=== PATIENT | male | born 1990 | race Two or more races ===

== ENCOUNTER → 2018-05-10 18:49 | Emergency (ER) | payer OTHER ==
--- NOTE | 2018-05-10 19:20 | ED ---
Psychiatric Complaint - HPI Summary HPI Summary: The patient is a 27 y/o M presenting to [facility] with a chief complaint of depression symptoms that worsened today. He reports that he is going through a divorce and wanted to see his son today but he was unable to, causing him to become very upset. He additionally notes that his oral intake has decreased, although it's been better more recently than at the start of the divorce a few weeks ago. He also states that he is stressed about finishing school this semester due to the stress of the divorce, and he is fearful that won't be able to pay for it. He denies SI and HI at this time. He has hx of depression, anxiety, and epilepsy as a child. No surgical hx. FHx of diabetes, stroke, and lung CA. Nonsmoker, no substance use, occasional EtOH. - History Of Current Complaint Chief Complaint: [facility]MentalHealth Time Seen by Provider: 05/10/18 18:55 Hx Obtained From: Patient Onset/Duration: Gradual Onset, Still Present, Worse Since - today Timing: Days Severity Initially: Moderate Severity Currently: Moderate Character: Depressed Aggravating Factor(s): Recent Stress - due to divorce and school, Other - unable to see son Alleviating Factor(s): Nothing Associated Signs And Symptoms: Positive: Appetite Change Related History: Positive For: Prior Psychiatric Issues - depression, anxiety Has Suicidal: Denies: Thoughts Has Homicidal: Denies: Thoughts Recent Stressor(s): divorce, school - Allergies/Home Medications Allergies/Adverse Reactions: Allergies Allergy/AdvReac Type Severity Reaction Status Date / Time No Known Allergies Allergy Verified 05/10/18 19:08 Home Medications: Home Medications Amitriptyline TAB* [Elavil TAB*] 10 mg PO BEDTIME 05/10/18 [History Confirmed ] LORazepam [Lorazepam] 0.5 mg PO TID PRN 05/10/18 [History Confirmed 05/10/18] Omeprazole 20 mg PO DAILY 05/10/18 [History Confirmed 05/10/18] Sertraline HCl [Zoloft] 75 mg PO DAILY 05/10/18 [History Confirmed 05/10/18] hydrOXYzine HCl [Hydroxyzine HCl] 10 mg PO TID PRN 05/10/18 [History Confirmed 05/10/18] PMH/Surg Hx/FS Hx/Imm Hx Endocrine/Hematology History: Denies: Hx Diabetes Respiratory History: Denies: Hx Asthma Neurological History: Reports: Hx Seizures - epilepsy as child Psychiatric History: Reports: Hx Anxiety, Hx Depression - Surgical History Surgery Procedure, Year, and Place: none Infectious Disease History: No Infectious Disease History: Denies: Traveled Outside the [place] in Last 30 Days - Family History Known Family History: Positive: Diabetes, Respiratory Disease - lung CA, Other - stroke - Social History Occupation: Student Alcohol Use: Rare Hx Substance Use: No Substance Use Type: Reports: None Hx Tobacco Use: No Smoking Status (MU): Never Smoked Tobacco Review of Systems Positive: Other - decreased appetite/fluid intake Positive: Depressed, Other - POSITIVE: stress; NEGATIVE: SI, HI All Other Systems Reviewed And Are Negative: Yes Physical Exam - Summary Physical Exam Summary: VITAL SIGNS: Reviewed. GENERAL: Patient is a well-developed and nourished male who is lying comfortable in the stretcher. Patient is not in any acute respiratory distress. Obviously upset. HEAD AND FACE: No signs of trauma. No ecchymosis, hematomas or skull depressions. No sinus tenderness. EYES: PERRLA, EOMI x 2, No injected conjunctiva, no nystagmus. EARS: Hearing grossly intact. Ear canals and tympanic membranes are within normal limits. MOUTH: Oropharynx within normal limits. NECK: Supple, trachea is midline, no adenopathy, no JVD, no carotid bruit, no c- spine tenderness, neck with full ROM. CHEST: Symmetric, no tenderness at palpation LUNGS: Clear to auscultation bilaterally. No wheezing or crackles. CVS: Regular rate and rhythm, S1 and S2 present, no murmurs or gallops appreciated. ABDOMEN: Soft, non-tender. No signs of distention. No rebound no guarding, and no masses palpated. Bowel sounds are normal. EXTREMITIES: FROM in all major joints, no edema, no cyanosis or clubbing. NEURO: Alert and oriented x 3. No acute neurological deficits. Speech is normal and follows commands. SKIN: Dry and warm PSYCH: Depressed, crying, quiet, and denies any suicidal thoughts or plan. No homicidal thoughts or plan. No signs of psychosis or pressure speech. No tangential speech. Triage Information Reviewed: Yes Vital Signs On Initial Exam: Initial Vitals Temp Pulse Resp BP Pulse Ox 98.1 F 93 16 143/98 99 05/10/18 18:52 05/10/18 18:52 05/10/18 18:52 05/10/18 18:52 05/10/18 18:52 Vital Signs Reviewed: Yes Diagnostics - Vital Signs Vital Signs Temp Pulse Resp BP Pulse Ox 05/10/18 18:52 98.1 F 93 16 143/98 99 - Laboratory Result Diagrams: 05/10/18 19:29 05/10/18 19:29 Lab Statement: Any lab studies that have been ordered have been reviewed, and results considered in the medical decision making process. Course/Dx - Course Assessment/Plan: Blood work w/o a significant abnormality. He is medically cleared. He is awaiting a MHE. Patient is hemodynamically stable and A+O x 3. Dr. Gonzalez has assessed the patient, and he recommends for the patient to be discharged home with follow-up with the outpatient therapy at [facility]. Diagnosis is unspecified depressive disorder. - Differential Dx/Clinical Impression Differential Diagnosis/HQI/PQRI: Positive: Anxiety, Depression Provider Diagnosis: Depressive disorder - Physician Notifications Discussed Care Of Patient With: Beto Valiente - mental health test engine evaluator Time Discussed With Above Provider: 21:10 Instructed by Provider To: Other - I spoke with Beto Valiente who reports that Dr. Gonzalez will discharge the patient with dx of unspecified depressive disorder and follow up with outpatient therapy at [place]. Discharge - Sign-Out/Discharge Documenting (check all that apply): Patient Departure - Patient will be discharged home. Patient Received Moderate/Deep Sedation with Procedure: No - Discharge Plan Condition: Stable Disposition: HOME Referrals: Beatris Salinas NP [Primary Care Provider] - - Billing Disposition and Condition Condition: STABLE Disposition: Home - Attestation Statements Document Initiated by Re: Yes Documenting Scribe: Georgia Pearce Provider For Whom Re is Documenting (Include Credential): Dr. Aldo Sanders MD Scribe Attestation: Georgia Cason scribed for Dr. Aldo Sanders MD on 05/10/18 at 2111. Scribe Documentation Reviewed: Yes Provider Attestation: The documentation as recorded by the Georgia mandel accurately reflects the service I personally performed and the decisions made by me, Dr. Aldo Sanders MD Status of Scribe Document: Ready
[2018-05-10 19:34] LABS: Urine Appearance Cloudy; Urine Bilirubin Negative (Negative); Urine Blood Negative (Negative); Urine Color Yellow; Urine Glucose Negative (Negative); Urine Ketones 1+ (Negative); Urine Nitrite Negative (Negative); Urine Protein Negative (Negative); Urine Specific Gravity 1.023 (1.010-1.030); Urine Urobilinogen Negative (Negative)
[2018-05-10 19:35] LABS: ABS Basophils 0 10^3/ul (0-0.2); ABS Eosinophils 0 10^3/ul (0-0.6); ABS Lymphocytes 0.9 10^3/ul (1.0-4.8); ABS Monocytes 0.3 10^3/ul (0-0.8); ABS Neutrophils 5.6 10^3/ul (1.5-7.7); ABS Nucleated RBC 0 10^3/ul; Eosinophil % 0.2 %; Hematocrit 44 % (36-46); Hemoglobin 15.2 g/dL (14.0-18.0); Lymphocyte % 13.6 %; Mean Corpuscular HGB Conc 35 g/dL (31-36); Mean Corpuscular Hemoglobin 30 pg (27-31); Mean Corpuscular Volume 88 fL (80-94); Mean Platelet Volume 8.1 fL (7.4-10.4); Nucleated Red Blood Cells % 0; Platelet Count 215 10^3/uL (150-450); Red Blood Count 5.03 10^6 /uL (4.18-5.48); Red Cell Distribution Width 13 % (10.5-15); White Blood Count 6.9 10^3/uL (3.5-10.8)
[2018-05-10 19:53] LABS: Barbiturates Urine Screen None Detected (None Detect); Benzodiazepine Urine Screen None Detected (None Detect); Urine Cannabinoids Screen None Detected (None Detect)
[2018-05-10 20:09] LABS: ALT 19 U/L (7-52); AST 20 U/L (13-39); Albumin 4.9 g/dL (3.2-5.2); Alkaline Phosphatase 62 U/L (34-104); Anion Gap 9 mmol/L (2-11); BUN/Creatinine Ratio 13.5 (8-20); Blood Urea Nitrogen 15 mg/dL (6-24); CO2 Carbon Dioxide 24 mmol/L (22-32); Calcium 9.8 mg/dL (8.6-10.3); Chloride 103 mmol/L (101-111); EGFR African American 96.2 (>60); EGFR Non-African American 79.5 (>60); Globulin 2.4 g/dL (2-4); Glucose 109 mg/dL (70-100); Potassium 4.2 mmol/L (3.5-5.0); Sodium 136 mmol/L (135-145); Total Protein 7.3 g/dL (6.4-8.9)
[2018-05-10 20:16] LABS: TSH (Thyroid Stimulating Horm) 1.04 mcIU/mL (0.34-5.60)
[2018-05-10 20:17] LABS: Acetaminophen < 15 mcg/mL; Alcohol < 10 mg/dL (<10); Salicylate < 2.50 mg/dL (<30)
[2018-05-10 21:40] VITALS: BP 140/74
== END | disposition home or self-care (01) ==
LOC: ED 18:49
DX: F32.9 Major depressive disorder, single episode, unspecified (principal); G40.909 Epilepsy, unspecified, not intractable, without status epilepticus; F41.9 Anxiety disorder, unspecified
CPT/HCPCS: 36415; 80053; 80307; 80320; 80329; 81003; 84443; 85025; 99284; G0480